=== PATIENT | male | born 1990 | race Two or more races ===

== ENCOUNTER 2016-10-28 21:38 | Emergency (ER) | payer MEDICAID ==
[~2016-10-28] VITALS: Ht 185.4 cm; Wt 79.4 kg
[2016-10-28] MEDS ORDERED: NKM (21:51)
[2016-10-28 21:52] VITALS: BP 123/74
[2016-10-28] MEDS ORDERED: Norco 5mg/325mg tab ORAL ONE (22:45)
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
[2016-10-28] MEDS ORDERED: IBUPROFEN600 MG ORAL (23:18)
[2016-10-28 23:26] VITALS: BP 120/71
[2016-10-28 23:27] VITALS: BP 120/71
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
== END 2016-10-28 23:31 | disposition home or self-care (01) ==
LOC: EMR 22:05
DX: S39.012A Strain of muscle, fascia and tendon of lower back, initial encounter (principal); S40.011A Contusion of right shoulder, initial encounter; S40.021A Contusion of right upper arm, initial encounter; V09.9XXA Pedestrian injured in unspecified transport accident, initial encounter; Y93.55 Activity, bike riding; Y92.9 Unspecified place or not applicable; Y99.9 Unspecified external cause status; M25.511 Pain in right shoulder; M54.9 Dorsalgia, unspecified
CPT/HCPCS: 72020; 99283